=== PATIENT | female | born 1985 | race Two or more races ===

== ENCOUNTER 2019-10-09 11:13 | Emergency (ER) | payer MEDICAID ==
[~2019-10-09] VITALS: Ht 165.1 cm; Wt 62.0 kg
[~2019-10-09 11:13] MED LIST: ALBUTEROL; AMOXICILLIN; PREDNISONE
[2019-10-09] MEDS ORDERED: ONDANSETRON HCL 4MG/2ML INJ IV STA (11:31)
[2019-10-09] MEDS ORDERED: KETOROLAC 30MG/ML VIAL IV STA (11:31)
[2019-10-09] MEDS ORDERED: MORPHINE SULFATE 4 MG/ML CPJ (NOT FOR IM USE) IV STA (11:31)
[2019-10-09] MEDS ORDERED: SODIUM CHLORIDE 0.9% 1000ML BAG (SEPSIS BOLUS) IV ONE (11:45)
[2019-10-09] MEDS ORDERED: CEFTRIAXONE 1 G PREMIX 50 ML IV ONE (11:45)
[2019-10-09 12:00] LABS: BASOPHILS % 0.3 % (0.0-2.0); EOSINOPHILS % 1.5 % (0.0-5.0); HEMATOCRIT. 38.2 % (36.0-48.0); HEMOGLOBIN. 13.6 g/dL (12.0-16.0); LYMPHOCYTES % 25.9 % (20.0-50.0); MEAN CORPUSCULAR HEMOGLOBIN 34.1 pg (28.0-32.0); MEAN PLATELET VOLUME 9.8 fl (7.4-10.4); MONOCYTES % 2.8 % (2.0-8.0); NEUTROPHILS % 69.5 % (40.0-76.0); PLATELET 257 x1000/uL (130-400); RED BLOOD CELL COUNT 3.98 mill/uL (4.2-5.4)
[2019-10-09 12:06] LABS: CHLORIDE 110 mEq/L (98-107)
[2019-10-09 12:08] LABS: PROTHROMBIN TIME 10.7 sec (9.6-11.0)
[2019-10-09 12:10] LABS: ETHANOL BLOOD < 10 mg/dL
[2019-10-09 12:11] LABS: HCG SCREEN NEGATIVE
[2019-10-09 12:17] LABS: B-HCG QUANTITATIVE < 1 mIU/mL (<3)
[2019-10-09 13:18] LABS: CLARITY URINE CLEAR (CLEAR); COLOR URINE YELLOW (YELLOW); KETONES URINE 1+ (NEGATIVE); LEUKOCYTE ESTERASE URINE NEGATIVE (NEGATIVE); NITRITE URINE NEGATIVE (NEGATIVE); OCCULT BLOOD URINE TRACE (NEGATIVE); PROTEIN URINE 2+ (NEGATIVE); SPECIFIC GRAVITY URINE 1.016 (1.005-1.030); UROBILINOGEN URINE 0.2 E.U./dL (0.2-1.0)
[2019-10-09 13:32] LABS: *AMPHETAMINES SCREEN URINE NEGATIVE (NEGATIVE); *BARBITURATES SCREEN URINE NEGATIVE (NEGATIVE); *BENZODIAZEPINES SCREEN URINE NEGATIVE (NEGATIVE); *COCAINE SCREEN URINE NEGATIVE (NEGATIVE)
[2019-10-09 13:33] LABS: CANNABINOID URINE SCREEN NEGATIVE (NEGATIVE); METHADONE URINE SCREEN NEGATIVE (NEGATIVE); OPIATES URINE SCREEN NEGATIVE (NEGATIVE); PHENCYCLIDINE URINE SCREEN NEGATIVE (NEGATIVE)
[2019-10-09 17:11] VITALS: BP 104/57
== END 2019-10-09 17:30 | disposition short-term general hospital (02) ==
LOC: ER 11:13 → CANBEDREQ 18:16
DX: N20.0 Calculus of kidney (principal); K80.80 Other cholelithiasis without obstruction; E87.2 Acidosis; J45.909 Unspecified asthma, uncomplicated
CPT/HCPCS: 36415; 71045; 74176; 80053; 80305; 80320; 81003; 81025; 83605; 83880; 84145; 84484; 84702; 84703; 85025; 85610; 87040; 87086; 93005; 96365; 96375; 99285; J0696; J1885; J2405; J7030; J2270; G0480